=== PATIENT | female | born 1970 | race African-American/Black ===

== ENCOUNTER → 2016-08-18 | Outpatient (CLI) | payer OTHER ==
[~2016-08-18] MED LIST: AMLO10 PO; CALC250 PO; CHOL1TAB16 PO; COMMODE 3:1; DIOV320T PO; DOCU1CAP39 PO; HYDR-3534 PO; METO100T9 PO; METO25TA6 PO; METR-1 PO; MSM1000C4 PO; THERM PO; TUB TRANSFER BENCH; VALS1TAB70 PO; WHEELCHAIR RENTAL; Z.0.CPM; Z.0.WALKERFRONT
[2016-08-18 15:18] LABS: BLOOD, URINE SMALL (NEG); GLUCOSE,URINE NEG (NEG); HYALINE CAST, URINE 1 /lpf (RARE); KETONE, URINE NEG (NEG); MUCUS URINE FEW /lpf (OCC); NITRITE,URINE NEG (NEG); SQUAMOUS EPITHELIAL CELL URINE 7 /hpf (0-5); URINE COLOR DARK-YELLOW (YELLW/STRAW)
[2016-08-18 15:26] LABS: HEMATOCRIT 38.6 % (35.0-46.0); MEAN CELL VOLUME 78.9 FL (80.0-100.0); MEAN CORPUSCULAR HEMOGLOBIN 25.4 PG (27.0-34.0); MEAN CORPUSCULAR HGB CONC 32.2 % (32.0-36.0); PLATELET COUNT 291 TH/MM3 (150-450); RED BLOOD COUNT 4.89 MIL/MM3 (4.00-5.30); RED CELL DISTRIBUTION WIDTH 17.5 % (11.6-17.2); REVIEW FLAG FINAL; WHITE BLOOD COUNT 8.6 TH/MM3 (4.0-11.0)
[2016-08-18 15:34] LABS: BICARBONATE 28.3 MEQ/L (21.0-32.0); POTASSIUM 3.7 MEQ/L (3.5-5.1)
[2016-08-18 15:53] LABS: FREE T4 1.11 NG/DL (0.76-1.46); HDL CHOLESTEROL 49.6 MG/DL (40.0-60.0)
== END ==
LOC: CLAB 14:25
PROVIDERS: ATTEND Family Medicine Adolescent Medicine
DX: E11.29 Type 2 diabetes mellitus with other diabetic kidney complication (principal); E78.4 Other hyperlipidemia; N18.3 Chronic kidney disease, stage 3 (moderate); E55.9 Vitamin D deficiency, unspecified; Z79.899 Other long term (current) drug therapy
CPT/HCPCS: 36415; 80061; 80069; 81001; 82043; 82306; 82570; 83540; 83970; 84156; 84439; 84443; 85027

== ENCOUNTER 2016-10-07 21:00 | Emergency (ER) | payer OTHER ==
[~2016-10-07] VITALS: Ht 167.6 cm; Wt 129.0 kg
[2016-10-07 21:00] VITALS: BP 157/85; PULSE 82; RESP 18; TEMP 98.1; O2SAT 97
[~2016-10-07 21:00] MED LIST changes: -CHOL1TAB16 PO; -METO25TA6 PO; -METR-1 PO; -VALS1TAB70 PO
[2016-10-07] MEDS ORDERED: VALS1TAB70 PO (21:24)
[2016-10-07] MEDS ORDERED: METO25TA6 PO (21:24)
[2016-10-07] MEDS ORDERED: AMLO10 PO (21:24)
[2016-10-07] MEDS ORDERED: METO100T9 PO (21:24)
--- NOTE | 2016-10-07 21:33 | PD ---
HPI Chief Complaint: Flank/Kidney Pain Time Seen by Provider: 21:23 Travel History International Travel<30 days: No Contact w/Intl Traveler<30days: No Traveled to known affect area: No History of Present Illness HPI The patient is a 46-year-old female that pain in the right lateral upper abdomen for one week. It is not exactly in the right flank. She denies any left-sided pain. She denies any dysuria, frequency or urgency. She denies any fever, nausea or vomiting. She states she has never had this pain before. Now the pain is 0/10. The patient later gave a history that this pain began after sexual intercourse last week and she states that she had a malodorous discharge since. PFSH Past Medical History Arthritis: Yes (Bilat knees) Asthma: Yes Autoimmune Disease: No Anxiety: No Depression: No Heart Rhythm Problems: No Cancer: No Cardiovascular Problems: No High Cholesterol: Yes Chemotherapy: No Chest Pain: No Congestive Heart Failure: No COPD: No Cerebrovascular Accident: No Diabetes: Yes (Type 2 ) Patient Takes Glucophage: No Diminished Hearing: No Endocrine: Yes (Diabetes diet controlled) Gastrointestinal Disorders: Yes (GERD) GERD: Yes (once in awhile) Genitourinary: Yes (FREQUENCY) Hepatitis: No Hiatal Hernia: No Hypertension: Yes Immune Disorder: No Kidney Stones: No Musculoskeletal: Yes (ARTHRITIS) Neurologic: Yes (NEUROPATHY RIGHT FINGERS (?CTS)) Psychiatric: No Reproductive: No Respiratory: Yes (Asthma ) Immunizations Current: Yes Migraines: No Radiation Therapy: No Renal Failure: No Seizures: No Sickle Cell Disease: No Sleep Apnea: No Thyroid Disease: No Ulcer: No Tetanus Vaccination: > 5 Years Influenza Vaccination: Yes ?: Not LMP: 1.5 weeks ago Tubal Ligation: Yes Past Surgical History Abdominal Surgery: No AICD: No Arteriovenous Shunt: No Cardiac Surgery: No Ear Surgery: No Endocrine Surgery: No Eye Surgery: No Genitourinary Surgery: No Gynecologic Surgery: Yes (TUBAL LIGATION) Insulin Pump: No Joint Replacement: No Oral Surgery: No Pacemaker: No Thoracic Surgery: No Other Surgery: Yes (Total right knee) Social History Alcohol Use: No Tobacco Use: No Substance Use: No Allergies-Medications (Allergen,Severity, Reaction): Coded Allergies: CHIARA Inhibitors (Verified Allergy, Severe, ANGIOEDEMA, 10/07/16) Lotensin (Verified Allergy, Severe, ANGIOEDEMA, 10/07/16) Nonsteroidal Anti-Inflammatory Agts (Unverified Adverse Reaction, Unknown , 10/07/16) COMPROMISED KIDNEY FUNCTION Toradol (Unverified Adverse Reaction, Unknown, 10/07/16) POOR KIDNEY FUNCTION Reported Meds & Prescriptions Reported Meds & Active Scripts Active Reported Metoprolol Succinate ER 24 HR (Metoprolol Succinate) 25 Mg Tab 25 Mg PO DAILY Valsartan 320 Mg Tab 320 Mg PO DAILY Norvasc (Amlodipine Besylate) 10 Mg Tab 10 Mg PO DAILY Metoprolol Succinate ER 24 HR (Metoprolol Succinate) 100 Mg Tab 100 Mg PO DAILY Review of Systems Except as stated in HPI: all other systems reviewed are Neg Physical Exam Narrative GENERAL: The patient is obese, alert, oriented 3 in no apparent distress. Her vital signs show blood pressure 157/85 but are otherwise normal. SKIN: Warm and dry. HEAD: Atraumatic. Normocephalic. EYES: Pupils equal and round. No scleral icterus. No injection or drainage. ENT: No nasal bleeding or discharge. Mucous membranes pink and moist. NECK: Trachea midline. No JVD. CARDIOVASCULAR: Regular rate and rhythm. No murmur appreciated. RESPIRATORY: No accessory muscle use. Clear to auscultation. Breath sounds equal bilaterally. GASTROINTESTINAL: Abdomen soft, non-tender, nondistended. Hepatic and splenic margins not palpable. No guarding or rebound is present. I cannot reproduce the patient's pain by pressing on the right where she perceives the pain. MUSCULOSKELETAL: No obvious deformities. No clubbing. No cyanosis. No edema. NEUROLOGICAL: Awake and alert. No obvious cranial nerve deficits. Motor grossly within normal limits. Normal speech. PSYCHIATRIC: Appropriate mood and affect; insight and judgment normal. GENITOURINARY: Normal external genitalia without lesions or erythema. Vaginal vault without blood but there is a white, [id number] drainage. Cervical os was closed with clear drainage. No cervical motion tenderness. Uterus nontender and nonenlarged. Bilateral adnexa nontender without masses. Data Data Last Documented VS Vital Signs Date Time Temp Pulse Resp B/P Pulse Ox O2 Delivery O2 Flow Rate FiO2 10/07/16 22:15 68 18 155/84 97 Room Air 10/07/16 21:00 98.1 Orders Urinalysis - C+S If Indicated (10/07/16 21:21) Ed Urine Pregnancytest Poc (10/07/16 21:21) Gc And Chlamydia Pcr (10/07/16 21:34) Wet Prep Profile (10/07/16 21:34) Labs Laboratory Tests Test 10/07/16 10/07/16 21:25 21:52 Urine Collection Type CLEAN CATCH Urine Color YELLOW Urine Turbidity CLEAR Urine pH 6.0 Urine Specific [place] 1.025 Urine Protein 30 mg/dL Urine Glucose (UA) NEG mg/dL Urine Ketones NEG mg/dL Urine Occult Blood SMALL Urine Nitrite NEG Urine Bilirubin NEG Urine Leukocyte Esterase NEG Urine RBC 0-3 /hpf Urine WBC 0-2 /hpf Urine Squamous Epithelial >8 /hpf Cells Urine Bacteria RARE /hpf Urine Mucus MOD /lpf Microscopic Urinalysis Comment CULT NOT INDICATED Clue Cells (Wet Prep) NONE SEEN Vaginal Trichomonas (Wet Prep) NONE SEEN Vaginal Yeast (Wet Prep) NONE SEEN MDM Medical Decision Making Medical Screen Exam Complete: Yes Emergency Medical Condition: Yes Medical Record Reviewed: Yes Interpretation(s) The urine shows specific gravity 1.025, small occult blood and rare bacteria and is otherwise normal and culture is not indicated. The wet prep is negative for clue cells, yeast and Trichomonas. Differential Diagnosis Cystitis, pyelonephritis, vaginal yeast infection, bacterial vaginosis, trichomoniasis, Narrative Course The patient is mostly concerned about her vaginal odor. We do not see any clue cells on the vaginal secretions but I will give the patient a prescription for Flagyl to see if this helps. Diagnosis Primary Impression: Bacterial vaginosis Additional Instructions: As we discussed, do not drink alcohol with Flagyl. I know you won't because you do not drink alcohol. We did not see any cells indicative of bacterial vaginosis, nevertheless we will prescribe the Flagyl for 7 days. Your partner does not need to be treated. Follow-up with your guide travel next week. Med/Other Pt SpecificInfo: Prescription(s) given Scripts Metronidazole (Flagyl)500 Mg [id number] Mg PO TID 7 Days Ref 0 Prov:Ramses Cast MD 10/07/16 Disposition: 01 DISCHARGE HOME Condition: Stable Ramses Cast MD Oct 07, 2016 21:33
[2016-10-07 21:36] LABS: BLOOD, URINE SMALL (NEG); GLUCOSE,URINE NEG (NEG); KETONE, URINE NEG (NEG); NITRITE,URINE NEG (NEG)
[2016-10-07 21:56] LABS: METHOD OF COLLECTION CLEAN CATCH
[2016-10-07 21:57] LABS: BACTERIA, URINE RARE /hpf; COMMENT (UR) CULT NOT INDICATED; CULTURE IF INDICATED CULT NOT INDICATED; MUCUS URINE MOD /lpf (OCC); RBC, URINE 0-3 /hpf (0-3); SQUAMOUS EPITHELIAL CELL URINE >8 /hpf (0-5); URINE COLOR YELLOW (YELLW/STRAW); WBC, URINE 0-2 /hpf (0-5)
[2016-10-07 22:15] VITALS: BP 155/84; PULSE 68; RESP 18; O2SAT 97
[2016-10-07] MEDS ORDERED: METR-1 PO (22:39)
[2016-10-08 04:59] LABS: CHLAMYDIA PCR NOT DETECTED (NOT DETECT); NEISSERIA PCR NOT DETECTED (NOT DETECT)
== END 2016-10-07 22:57 | disposition home or self-care (01) ==
LOC: PHED 21:00
DX: N76.0 Acute vaginitis (principal); J45.909 Unspecified asthma, uncomplicated; E78.00 Pure hypercholesterolemia, unspecified; E11.9 Type 2 diabetes mellitus without complications; I10 Essential (primary) hypertension
CPT/HCPCS: 81001; 84703; 87210; 87491; 87591; 99284

== ENCOUNTER 2016-12-02 18:29 | Emergency (ER) | payer OTHER ==
[~2016-12-02] VITALS: Ht 167.6 cm; Wt 127.0 kg
[~2016-12-02 18:29] MED LIST changes: -CALC250 PO; -COMMODE 3:1; -DIOV320T PO; -DOCU1CAP39 PO; -HYDR-3534 PO; +METO25TA6 PO; +METR-1 PO; -MSM1000C4 PO; -THERM PO; -TUB TRANSFER BENCH; +VALS1TAB70 PO; -WHEELCHAIR RENTAL; -Z.0.CPM; -Z.0.WALKERFRONT
[2016-12-02 18:31] VITALS: BP 180/92; PULSE 86; RESP 16; TEMP 98.7; O2SAT 98
--- NOTE | 2016-12-02 19:13 | PD ---
HPI Chief Complaint: Abdominal Pain Time Seen by Provider: 19:11 Travel History International Travel<30 days: No Contact w/Intl Traveler<30days: No Traveled to known affect area: No History of Present Illness HPI 46-year-old female with a history of hypertension, diabetes and chronic kidney disease presents to the emergency department for evaluation of right-sided abdominal pain intermittently for 2 weeks. The patient states that she has 2 separate pains, one is in the right mid abdomen and right lower pelvic pain. She describes it as a squeezing pain that lasts about 10 minutes at a time. Denies any aggravating or alleviating factors. Denies any fever, chills, nausea , vomiting, diarrhea, constipation, dysuria, hematuria, vaginal discharge. The patient states that she thinks the symptoms began after having a man perform oral intercourse on her a few weeks ago. No other complaints. PFSH Past Medical History Arthritis: Yes (Bilat knees) Asthma: Yes Autoimmune Disease: No Anxiety: No Depression: No Heart Rhythm Problems: No Cancer: No Cardiovascular Problems: No High Cholesterol: Yes Chemotherapy: No Chest Pain: No Congestive Heart Failure: No COPD: No Cerebrovascular Accident: No Diabetes: Yes Patient Takes Glucophage: No Diminished Hearing: No Endocrine: Yes (Diabetes diet controlled) Gastrointestinal Disorders: Yes (GERD) GERD: Yes (once in awhile) Genitourinary: Yes (FREQUENCY) Headaches: No Hepatitis: No Hiatal Hernia: No Heparin Induced Thrombocytopen: No Hypertension: Yes Immune Disorder: No Implanted Vascular Access Dvce: No Kidney Stones: No Medical other: No Musculoskeletal: Yes (ARTHRITIS) Neurologic: Yes (NEUROPATHY RIGHT FINGERS (?CTS)) Psychiatric: No Reproductive: No Respiratory: Yes (Asthma ) Immunizations Current: Yes Migraines: No Radiation Therapy: No Renal Failure: No Seizures: No Sickle Cell Disease: No Sleep Apnea: No Thyroid Disease: No Ulcer: No ?: Not LMP: 2 months Tubal Ligation: Yes Past Surgical History Abdominal Surgery: No AICD: No Arteriovenous Shunt: No Cardiac Surgery: No Ear Surgery: No Endocrine Surgery: No Eye Surgery: No Genitourinary Surgery: No Gynecologic Surgery: Yes (TUBAL LIGATION) Insulin Pump: No Joint Replacement: No Neurologic Surgery: No Oral Surgery: No Pacemaker: No Thoracic Surgery: No Other Surgery: Yes (Total right knee) Social History Alcohol Use: No Tobacco Use: No Substance Use: No Allergies-Medications (Allergen,Severity, Reaction): Coded Allergies: CHIARA Inhibitors (Verified Allergy, Severe, ANGIOEDEMA, 10/07/16) Lotensin (Verified Allergy, Severe, ANGIOEDEMA, 10/07/16) Nonsteroidal Anti-Inflammatory Agts (Unverified Adverse Reaction, Unknown , 10/07/16) COMPROMISED KIDNEY FUNCTION Toradol (Unverified Adverse Reaction, Unknown, 10/07/16) POOR KIDNEY FUNCTION Reported Meds & Prescriptions Reported Meds & Active Scripts Active Reported Vitamin D3 (Cholecalciferol) 50,000 Unit Tab 50,000 Units PO TWICE A WEEK Metoprolol Succinate ER 24 HR (Metoprolol Succinate) 25 Mg Tab 112.5 Mg PO DAILY Take 1/2 tab (12.5mg) with 100mg tablet for a total dose of 112.5mg Valsartan 320 Mg Tab 320 Mg PO DAILY Norvasc (Amlodipine Besylate) 10 Mg Tab 10 Mg PO HS Metoprolol Succinate ER 24 HR (Metoprolol Succinate) 100 Mg Tab 112.5 Mg PO DAILY Take 1 tablet (100mg) with 1/2 of 25mg tab (12.5mg) for a total dose of 112.5mg Review of Systems Except as stated in HPI: all other systems reviewed are Neg Physical Exam Narrative GENERAL: Well-nourished and well-developed pleasant patient in no acute distress who is nontoxic appearing. SKIN: Warm and dry. HEAD: Normocephalic and atraumatic. EYES: No injection, drainage, or hyphema noted. PERRLA. EOMI. ENT: No nasal drainage noted. Oropharynx is clear. NECK: Supple and the trachea is midline. CARDIOVASCULAR: Regular rate and rhythm. RESPIRATORY: Breath sounds are equal bilaterally with no accessory muscle use, wheezing, rhonchi, or crackles. GASTROINTESTINAL: Mild suprapubic tenderness to palpation. No rebound tenderness or guarding. Abdomen is soft and nondistended. Negative Kahn's sign. Negative McBurney's point. GENITOURINARY: Normal external genitalia without lesions or erythema. Vaginal vault with small amount of white discharge, no blood. Cervical os was closed without drainage. No cervical motion tenderness. Uterus nontender and nonenlarged. Bilateral adnexa nontender without masses. Performed in the presence of Funmi LO. MUSCULOSKELETAL: No obvious deformities, swelling, cyanosis, or ecchymosis is present throughout the upper and lower extremities. Patient has full range of motion without any signs of neurovascular compromise. NEUROLOGICAL: Awake, alert, and oriented. Normal speech and gait. Cranial nerves are grossly intact. Data Data Last Documented VS Vital Signs Date Time Temp Pulse Resp B/P Pulse Ox O2 Delivery O2 Flow Rate FiO2 12/02/16 18:31 98.7 86 16 180/92 98 Orders Complete Blood Count With Diff (12/02/16 19:09) Comprehensive Metabolic Panel (12/02/16 19:09) Gc And Chlamydia Pcr (12/02/16 19:09) Wet Prep Profile (12/02/16 19:09) Urinalysis - C+S If Indicated (12/02/16 19:09) Iv Access Insert/Monitor (12/02/16 19:09) Ed Urine Pregnancytest Poc (12/02/16 19:09) Labs Laboratory Tests Test 12/02/16 12/02/16 12/02/16 19:18 19:43 19:52 Urine Color YELLOW Urine Turbidity HAZY Urine pH 6.0 Urine Specific [place] 1.025 Urine Protein 30 mg/dL Urine Glucose (UA) NEG mg/dL Urine Ketones NEG mg/dL Urine Occult Blood SMALL Urine Nitrite NEG Urine Bilirubin NEG Urine Urobilinogen LESS THAN 2.0 MG/DL Urine Leukocyte Esterase NEG Urine RBC 3 /hpf Urine WBC 1 /hpf Urine Squamous Epithelial 14 /hpf Cells Urine Mucus FEW /lpf Microscopic Urinalysis Comment CULT NOT INDICATED Clue Cells (Wet Prep) NONE SEEN Vaginal Trichomonas (Wet Prep) NONE SEEN Vaginal Yeast (Wet Prep) NONE SEEN White Blood Count 10.0 TH/MM3 Red Blood Count 4.88 MIL/MM3 Hemoglobin 13.0 GM/DL Hematocrit 39.8 % Mean Corpuscular Volume 81.5 FL Mean Corpuscular Hemoglobin 26.6 PG Mean Corpuscular Hemoglobin 32.6 % Concent Red Cell Distribution Width 16.9 % Platelet Count 300 TH/MM3 Mean Platelet Volume 9.0 FL Neutrophils (%) (Auto) 56.1 % Lymphocytes (%) (Auto) 32.1 % Monocytes (%) (Auto) 7.9 % Eosinophils (%) (Auto) 3.0 % Basophils (%) (Auto) 0.9 % Neutrophils # (Auto) 5.6 TH/MM3 Lymphocytes # (Auto) 3.2 TH/MM3 Monocytes # (Auto) 0.8 TH/MM3 Eosinophils # (Auto) 0.3 TH/MM3 Basophils # (Auto) 0.1 TH/MM3 CBC Comment DIFF FINAL Differential Comment Sodium Level 141 MEQ/L Potassium Level 3.4 MEQ/L Chloride Level 105 MEQ/L Carbon Dioxide Level 27.5 MEQ/L Anion Gap 9 MEQ/L Blood Urea Nitrogen 13 MG/DL Creatinine 1.14 MG/DL Estimat Glomerular Filtration 62 ML/MIN Rate Random Glucose 92 MG/DL Calcium Level 9.4 MG/DL Total Bilirubin 0.4 MG/DL Aspartate Amino Transf 13 U/L (AST/SGOT) Alanine Aminotransferase 23 U/L (ALT/SGPT) Alkaline Phosphatase 75 U/L Total Protein 7.8 GM/DL Albumin 3.8 GM/DL [facility] Medical Decision Making Medical Screen Exam Complete: Yes Emergency Medical Condition: Yes Differential Diagnosis PID versus cystitis versus UTI versus other Narrative Course 46-year-old female presents to the emergency department for evaluation of right- sided abdominal pain and suprapubic pain. Patient is afebrile, vital signs are stable. Abdominal examination reveals mild suprapubic tenderness but overall is benign. IV access was obtained, labs drawn and sent. Patient is placed on cardiac telemetry and pulse oximetry monitoring. I reviewed the EMR which shows that the patient was seen in our emergency department about a month ago for similar symptoms, urine, wet prep and GC chlamydia was negative at that time as well. CBC is unremarkable. CMP shows renal insufficiency with a creatinine of 1.14, G4 62. Patient states that this is her baseline. Urinalysis shows 30 protein, small occult blood, few mucus. No sign of infection. Wetprep is negative. Gonorrhea and chlamydia is pending. It was negative 1 month ago when she came in for the same complaint. Patient has remained stable and without complaint while here in the emergency department. Labs are reassuring. I discussed with the patient that the etiology of her pain is unclear however I do not suspect any acute process. She is instructed to follow-up with her PCP. Instructed to return to the ED for any worsening of symptoms. I discussed the case with my attending physician Dr. Turner who is aware of the patients history, physical examination findings, and treatment plan. Diagnosis Primary Impression: Abdominal pain Qualified Code: R10.9 - Abdominal pain, unspecified location Referrals: Primary Care Physician Patient Instructions: Abdominal Pain (ED), General Instructions Additional Instructions: Follow-up with your Primary Care Physician. Return to the ED for any acute worsening of symptoms such as fever, vomiting, worsening pain. Med/Other Pt SpecificInfo: No Change to Meds Disposition: 01 DISCHARGE HOME Condition: Stable Keya Zhao Dec 02, 2016 19:13
[2016-12-02] MEDS ORDERED: CHOL1TAB16 PO (19:19)
[2016-12-02 20:03] LABS: AUTOMATED NEUTROPHIL # 5.6 TH/MM3 (1.8-7.7); BASOPHIL # 0.1 TH/MM3 (0-0.2); BASOPHIL % 0.9 % (0.0-2.0); EOSINOPHIL # 0.3 TH/MM3 (0-0.4); HEMATOCRIT 39.8 % (35.0-46.0); HEMO FLAGS DIFF FINAL; LYMPH % 32.1 % (9.0-44.0); LYMPHOCYTE # 3.2 TH/MM3 (1.0-4.8); MEAN CELL VOLUME 81.5 FL (80.0-100.0); MEAN CORPUSCULAR HEMOGLOBIN 26.6 PG (27.0-34.0); MEAN CORPUSCULAR HGB CONC 32.6 % (32.0-36.0); MONO % 7.9 % (0.0-8.0); NEUT % 56.1 % (16.0-70.0); PLATELET COUNT 300 TH/MM3 (150-450); RED BLOOD COUNT 4.88 MIL/MM3 (4.00-5.30); RED CELL DISTRIBUTION WIDTH 16.9 % (11.6-17.2)
[2016-12-02 20:17] LABS: BLOOD, URINE SMALL (NEG); COMMENT (UR) CULT NOT INDICATED; CULTURE IF INDICATED CULT NOT INDICATED; GLUCOSE,URINE NEG (NEG); KETONE, URINE NEG (NEG); MUCUS URINE FEW /lpf (OCC); NITRITE,URINE NEG (NEG); SQUAMOUS EPITHELIAL CELL URINE 14 /hpf (0-5); URINE COLOR YELLOW (YELLW/STRAW)
[2016-12-02 20:27] LABS: ANION GAP 9 MEQ/L (5-15); AST (GOT) 13 U/L (15-37); BICARBONATE 27.5 MEQ/L (21.0-32.0); BLOOD UREA NITROGEN 13 MG/DL (7-18); CHLORIDE 105 MEQ/L (98-107); GLOMERULAR FILTRATION RATE 62 ML/MIN (>89); POTASSIUM 3.4 MEQ/L (3.5-5.1); SODIUM (NA) 141 MEQ/L (136-145)
[2016-12-02 20:30] LABS: ALKALINE PHOSPHATASE 75 U/L (45-117); ALT (GPT) 23 U/L (10-53); TOTAL BILIRUBIN ADULT 0.4 MG/DL (0.2-1.0)
[2016-12-02 21:57] LABS: CHLAMYDIA PCR NOT DETECTED (NOT DETECT); NEISSERIA PCR NOT DETECTED (NOT DETECT)
== END 2016-12-02 21:06 | disposition home or self-care (01) ==
LOC: NEPD 18:29
DX: R10.2 Pelvic and perineal pain (principal)
CPT/HCPCS: 80053; 81001; 84703; 85025; 87210; 87491; 87591; 99284

== ENCOUNTER → 2016-12-21 | Outpatient (CLI) | payer OTHER ==
[~2016-12-21] MED LIST changes: +CHOL1TAB16 PO; -METR-1 PO
[2016-12-21 14:50] LABS: HDL CHOLESTEROL 50.7 MG/DL (40.0-60.0); TOTAL BILIRUBIN ADULT 0.7 MG/DL (0.2-1.0)
[2016-12-21 14:55] LABS: INDIRECT BILIRUBIN 0.6 MG/DL (0.0-0.8)
== END ==
LOC: CLAB 14:07
PROVIDERS: ATTEND Family Medicine Adolescent Medicine
DX: R05 Cough (principal); Z79.899 Other long term (current) drug therapy
CPT/HCPCS: 36415; 80061; 80076

== ENCOUNTER → 2017-03-02 | Outpatient (CLI) | payer OTHER ==
[2017-03-02 07:45] LABS: HEMATOCRIT 39.5 % (35.0-46.0); MEAN CORPUSCULAR HEMOGLOBIN 26.9 PG (27.0-34.0); MEAN CORPUSCULAR HGB CONC 31.7 % (32.0-36.0); PLATELET COUNT 303 TH/MM3 (150-450); RED BLOOD COUNT 4.64 MIL/MM3 (4.00-5.30); RED CELL DISTRIBUTION WIDTH 16.8 % (11.6-17.2); REVIEW FLAG FINAL; WHITE BLOOD COUNT 8.1 TH/MM3 (4.0-11.0)
[2017-03-02 07:55] LABS: BACTERIA, URINE RARE /hpf; BLOOD, URINE SMALL (NEG); COMMENT (UR) CULT NOT INDICATED; CULTURE IF INDICATED CULT NOT INDICATED; GLUCOSE,URINE NEG (NEG); KETONE, URINE NEG (NEG); MUCUS URINE FEW /lpf (OCC); NITRITE,URINE NEG (NEG); SQUAMOUS EPITHELIAL CELL URINE 4 /hpf (0-5); URINE COLOR YELLOW (YELLW/STRAW)
[2017-03-02 08:31] LABS: BICARBONATE 23.9 MEQ/L (21.0-32.0); POTASSIUM 3.8 MEQ/L (3.5-5.1)
== END ==
LOC: CLAB 07:13
PROVIDERS: ATTEND Internal Medicine Nephrology
DX: E55.9 Vitamin D deficiency, unspecified (principal); N18.3 Chronic kidney disease, stage 3 (moderate)
CPT/HCPCS: 36415; 80069; 81001; 82306; 82570; 83970; 84156; 85027

== ENCOUNTER → 2017-04-19 | Outpatient (CLI) | payer OTHER ==
[2017-04-19 16:23] LABS: HDL CHOLESTEROL 46.9 MG/DL (40.0-60.0); INDIRECT BILIRUBIN 0.4 MG/DL (0.0-0.8); TOTAL BILIRUBIN ADULT 0.5 MG/DL (0.2-1.0)
== END ==
LOC: CLAB 15:25
PROVIDERS: ATTEND Family Medicine Adolescent Medicine
DX: E78.4 Other hyperlipidemia (principal); Z79.899 Other long term (current) drug therapy
CPT/HCPCS: 36415; 80061; 80076

== ENCOUNTER → 2017-07-05 | Outpatient (CLI) | payer OTHER ==
[~2017-07-05] MED LIST changes: -METO100T9 PO; +METO1TAB42 PO; +METO1TAB43 PO; -METO25TA6 PO
[2017-07-05 08:23] LABS: BICARBONATE 25.2 MEQ/L (21.0-32.0); POTASSIUM 3.6 MEQ/L (3.5-5.1)
== END ==
LOC: CLAB 07:16
PROVIDERS: ATTEND Physician Assistant
DX: N18.3 Chronic kidney disease, stage 3 (moderate) (principal)
CPT/HCPCS: 36415; 80048

== ENCOUNTER 2017-08-24 19:16 | Emergency (ER) | payer OTHER ==
[~2017-08-24] VITALS: Ht 167.6 cm; Wt 136.0 kg
[2017-08-24 19:18] VITALS: BP 197/93; PULSE 92; RESP 16; TEMP 100.4; O2SAT 96
[2017-08-24] MEDS ORDERED: ACETAMINOPHEN 500 MG CPLT PO ONE (21:15)
--- NOTE | 2017-08-24 21:37 | PD ---
HPI Chief Complaint: Cold / Flu Symptoms Time Seen by Provider: 21:10 Travel History International Travel<30 days: No Contact w/Intl Traveler<30days: No Traveled to known affect area: No History of Present Illness HPI 47-year-old black female presents to emergency department with a 2 day history of flulike symptoms. She admits to headache, sore throat, congestion, cough, decreased appetite and general malaise. Patient states that she has mild arthralgias but no significant myalgias. Patient denies any sputum production, shortness of breath, nausea, vomiting, abdominal pain. No urinary symptoms. PFSH Past Medical History Arthritis: Yes (Bilat knees) Asthma: Yes Autoimmune Disease: No Anxiety: No Depression: No Heart Rhythm Problems: No Cancer: No Cardiovascular Problems: No High Cholesterol: Yes Chemotherapy: No Chest Pain: No Congestive Heart Failure: No COPD: No Cerebrovascular Accident: No Diabetes: Yes Patient Takes Glucophage: No Diminished Hearing: No Endocrine: Yes (Diabetes diet controlled) Gastrointestinal Disorders: Yes (GERD) GERD: Yes (once in awhile) Genitourinary: Yes (FREQUENCY) Headaches: No Hepatitis: No Hiatal Hernia: No Heparin Induced Thrombocytopen: No Hypertension: Yes Immune Disorder: No Implanted Vascular Access Dvce: No Kidney Stones: No Musculoskeletal: Yes (ARTHRITIS) Neurologic: Yes (NEUROPATHY RIGHT FINGERS (?CTS)) Psychiatric: No Reproductive: No Respiratory: Yes (Asthma ) Immunizations Current: Yes Migraines: No Radiation Therapy: No Renal Failure: No Seizures: No Sickle Cell Disease: No Sleep Apnea: No Thyroid Disease: No Ulcer: No Tetanus Vaccination: < 5 Years Influenza Vaccination: No ?: Not LMP: 04/2017 Menopausal: Yes : 3 Tubal Ligation: Yes Past Surgical History Abdominal Surgery: No AICD: No Arteriovenous Shunt: No Cardiac Surgery: No Ear Surgery: No Endocrine Surgery: No Eye Surgery: No Genitourinary Surgery: No Gynecologic Surgery: Yes (TUBAL LIGATION) Insulin Pump: No Joint Replacement: No Neurologic Surgery: No Oral Surgery: No Pacemaker: No Thoracic Surgery: No Other Surgery: Yes (Total right knee) Social History Alcohol Use: No Tobacco Use: No Substance Use: No Allergies-Medications (Allergen,Severity, Reaction): Coded Allergies: benazepril (Unverified Allergy, Severe, ANGIOEDEMA, 03/20/17) captopril (Verified Allergy, Severe, ANGIOEDEMA, 08/24/17) enalaprilat (Verified Allergy, Severe, ANGIOEDEMA, 08/24/17) fosinopril (Verified Allergy, Severe, ANGIOEDEMA, 08/24/17) lisinopril (Verified Allergy, Severe, ANGIOEDEMA, 08/24/17) quinapril (Verified Allergy, Severe, ANGIOEDEMA, 08/24/17) diclofenac (Verified Adverse Reaction, Unknown, 08/24/17) COMPROMISED KIDNEY FUNCTION etodolac (Verified Adverse Reaction, Unknown, 08/24/17) COMPROMISED KIDNEY FUNCTION flurbiprofen (Verified Adverse Reaction, Unknown, 08/24/17) COMPROMISED KIDNEY FUNCTION ibuprofen (Verified Adverse Reaction, Unknown, 08/24/17) COMPROMISED KIDNEY FUNCTION indomethacin (Verified Adverse Reaction, Unknown, 08/24/17) COMPROMISED KIDNEY FUNCTION ketoprofen (Verified Adverse Reaction, Unknown, 08/24/17) COMPROMISED KIDNEY FUNCTION ketorolac (Verified Adverse Reaction, Unknown, 08/24/17) POOR KIDNEY FUNCTION naproxen (Verified Adverse Reaction, Unknown, 08/24/17) COMPROMISED KIDNEY FUNCTION oxaprozin (Verified Adverse Reaction, Unknown, 08/24/17) COMPROMISED KIDNEY FUNCTION Reported Meds & Prescriptions Reported Meds & Active Scripts Active Reported Metoprolol Succinate ER 24 HR (Metoprolol Succinate) 25 Mg Tab 112.5 Mg PO DAILY Take 1/2 tab (12.5mg) with 100mg tablet for a total dose of 112.5mg Valsartan 320 Mg Tab 320 Mg PO DAILY Norvasc (Amlodipine Besylate) 10 Mg Tab 10 Mg PO HS Review of Systems Except as stated in HPI: all other systems reviewed are Neg Physical Exam Narrative GENERAL: Well-developed, well-nourished in no acute distress. Nontoxic appearing. HEAD: Normocephalic, atraumatic. EYES: Pupils equal round and reactive. Extraocular motions intact. No scleral icterus. No injection or drainage. ENT: TMs clear without erythema. The external auditory canals clear. Nose: clear . Posterior pharynx is pink and moist. No tonsillar edema or exudate. Uvula midline. Airway patent. NECK: Trachea midline.Supple, nontender, moves head freely. No central bony tenderness or spasm. CARDIOVASCULAR: Regular rate and rhythm without murmurs, gallops, or rubs. RESPIRATORY: Clear to auscultation. Breath sounds equal bilaterally. No wheezes , rales, or rhonchi. GASTROINTESTINAL: Abdomen soft, non-tender, nondistended. No hepato-splenomegaly , or palpable masses. No guarding. EXTREMITIES: No clubbing, cyanosis, or edema. No joint tenderness, effusion, or edema noted. BACK: Nontender without deformity or crepitance. No flank tenderness. Data Data Last Documented VS Vital Signs Date Time Temp Pulse Resp B/P (MAP) Pulse Ox O2 Delivery O2 Flow Rate FiO2 08/24/17 21:12 20 08/24/17 19:18 100.4 92 197/93 (127) 96 Room Air Orders Orders Influenzae A/B Antigen (08/24/17 21:13) Acetaminophen (Tylenol) (08/24/17 21:15) Oseltamivir (Tamiflu) (08/24/17 22:45) Ed Discharge Order (08/24/17 22:43) MDM Medical Decision Making Medical Screen Exam Complete: Yes Emergency Medical Condition: Yes Medical Record Reviewed: Yes Interpretation(s) Influenza: Positive influenza A Differential Diagnosis MDM: High Differential diagnoses: Pneumonia, bronchitis, URI, asthma, pharyngitis, influenza, influenza-like illness Narrative Course Patient is given 1 g of Tylenol by mouth. Influenza ordered. Patient's influenza test is positive for influenza A. Patient has a history of diabetes and asthma. She'll be given Tamiflu 75 mg by mouth now and a prescription. This is influenza a Diagnosis Primary Impression: Influenza A Patient Instructions: General Instructions Departure Forms: Tests/Procedures, Work Release Special Instructions: No work 5 days. Additional Instructions: Rest. Force fluids. Tylenol every 4 hours as needed for fever or pain. Tamiflu. No work 5 days. Continue to take her medications for your diabetes and asthma. Follow-up with your primary care doctor in the next 3-5 days. Return to the ER for emergencies. Med/Other Pt SpecificInfo: Prescription(s) given Scripts Oseltamivir (Tamiflu) 75 Mg Cap 75 MG PO BID for Mgmt Viral Infection for 5 Days, #10 CAP 0 Refills Prov: Andrews Stanford MD 08/24/17 Disposition: 01 DISCHARGE HOME Condition: Stable Mo Sam Aug 24, 2017 21:37
[2017-08-24] MEDS ORDERED: OSEL75 PO (22:44)
[2017-08-24] MEDS ORDERED: OSELTAMIVIR PHOSPHATE 75 MG CAP PO ONE (22:45)
== END 2017-08-24 22:59 | disposition home or self-care (01) ==
LOC: NEPD 19:16
DX: J09.X2 Influenza due to identified novel influenza A virus with other respiratory manifestations (principal); I10 Essential (primary) hypertension; E78.00 Pure hypercholesterolemia, unspecified; E11.9 Type 2 diabetes mellitus without complications; J45.909 Unspecified asthma, uncomplicated; M19.90 Unspecified osteoarthritis, unspecified site; K21.9 Gastro-esophageal reflux disease without esophagitis; Z88.6 Allergy status to analgesic agent; Z79.899 Other long term (current) drug therapy
CPT/HCPCS: 87804; 99283

== ENCOUNTER → 2017-09-11 | Outpatient (CLI) | payer OTHER ==
[~2017-09-11] MED LIST changes: -CHOL1TAB16 PO; -METO1TAB43 PO; +OSEL75 PO
[2017-09-11 08:00] LABS: BACTERIA, URINE RARE /hpf; BILIRUBIN, URINE NEG (NEG); BLOOD, URINE TRACE (NEG); GLUCOSE,URINE NEG (NEG); KETONE, URINE NEG (NEG); MUCUS URINE FEW /lpf (OCC); NITRITE,URINE NEG (NEG); PH, URINE 5.5 (5.0-8.5); SQUAMOUS EPITHELIAL CELL URINE 2 /hpf (0-5); TRANSITIONAL EPI CELLS, URINE <1 /hpf; URINE COLOR YELLOW (YELLW/STRAW); URINE LEUKOCYTE ESTERASE NEG (NEG)
[2017-09-11 08:05] LABS: AUTOMATED NEUTROPHIL # 5.5 TH/MM3 (1.8-7.7); BASOPHIL % 0.5 % (0.0-2.0); EOSINOPHIL # 0.3 TH/MM3 (0-0.4); EOSINOPHIL % 3.3 % (0.0-4.0); HEMOGLOBIN 12.9 GM/DL (11.6-15.3); LYMPHOCYTE # 2.8 TH/MM3 (1.0-4.8); MEAN CELL VOLUME 83.6 FL (80.0-100.0); MEAN CORPUSCULAR HEMOGLOBIN 27.6 PG (27.0-34.0); MEAN PLATELET VOLUME 8.7 FL (7.0-11.0); MONO % 6.8 % (0.0-8.0); MONOCYTE # 0.6 TH/MM3 (0-0.9); NEUT % 59.4 % (16.0-70.0); PLATELET COUNT 315 TH/MM3 (150-450); RED BLOOD COUNT 4.67 MIL/MM3 (4.00-5.30); RED CELL DISTRIBUTION WIDTH 16.2 % (11.6-17.2); WHITE BLOOD COUNT 9.3 TH/MM3 (4.0-11.0)
[2017-09-11 08:27] LABS: ALBUMIN 3.8 GM/DL (3.4-5.0); BICARBONATE 25.4 MEQ/L (21.0-32.0); CREATININE 1.05 MG/DL (0.50-1.00)
[2017-09-11 08:28] LABS: ALBUMIN 3.7 GM/DL (3.4-5.0); DIRECT BILIRUBIN ADULT 0.1 MG/DL (0.0-0.2)
[2017-09-11 08:29] LABS: PHOSPHORUS 3.3 MG/DL (2.5-4.9)
[2017-09-11 08:32] LABS: CHOLESTEROL/ HDL RATIO 4.18 RATIO; HDL CHOLESTEROL 48.3 MG/DL (40.0-60.0); INDIRECT BILIRUBIN 0.3 MG/DL (0.0-0.8); TOTAL BILIRUBIN ADULT 0.4 MG/DL (0.2-1.0); TOTAL PROTEIN 7.7 GM/DL (6.4-8.2)
== END ==
LOC: CLAB 07:14
PROVIDERS: ATTEND Internal Medicine Nephrology
DX: E21.1 Secondary hyperparathyroidism, not elsewhere classified (principal); N18.3 Chronic kidney disease, stage 3 (moderate); E55.9 Vitamin D deficiency, unspecified
CPT/HCPCS: 36415; 80061; 80069; 80076; 81001; 82306; 82570; 83970; 84156; 85025